=== PATIENT | male | born 1940 | race Asian ===

== ENCOUNTER → 2018-02-02 | Outpatient (CLI) | payer MEDICARE, OTHER ==
[~2018-02-02] MED LIST: ATOR10TA84 PO; LISI-618 PO; METF500T4 PO; TAMS0.4C32 GT
== END | disposition home or self-care (01) ==
LOC: RADPV 12:00
PROVIDERS: ATTEND Internal Medicine
DX: R31.9 Hematuria, unspecified (principal)
CPT/HCPCS: 76770

== ENCOUNTER → 2024-10-10 | Outpatient (CLI) | payer OTHER ==
[~2024-10-10] MED LIST changes: +ATOR10TA PO; -ATOR10TA84 PO; -LISI-618 PO; +LISI20TA24 PO; +METF-444 PO; -METF500T4 PO; -TAMS0.4C32 GT; +TAMS0.4C94 GT
== END | disposition home or self-care (01) ==
LOC: RADPV 09:01
PROVIDERS: ATTEND Chiropractor
DX: I08.0 Rheumatic disorders of both mitral and aortic valves (principal); I49.1 Atrial premature depolarization; R94.31 Abnormal electrocardiogram [ECG] [EKG]
CPT/HCPCS: 93005; 93306